=== PATIENT | male | born 1975 | race Caucasian/White ===

== ENCOUNTER 2018-08-07 19:34 | Inpatient (IN) | payer MEDICAID, OTHER ==
[2018-08-07 21:15] LABS: ADD MAN DIFF? NO
[2018-08-07 21:18] LABS: BASOPHIL # 0.1 10^3/ul (0.0-0.1); BASOPHILS % 0.5 % (0.0-2.0); EOSINOPHILS % 0.1 % (0.0-7.0); HEMOGLOBIN 17.2 g/dl (14.0-18.0); LYMPHOCYTES # 1.2 10^3/ul (0.8-2.9); LYMPHOCYTES % 7.3 % (15.0-51.0); MEAN CORPUSCULAR HEMOGLOBIN 29.4 pg (29.0-33.0); MEAN CORPUSCULAR HGB CONC 33.7 g/dl (32.0-37.0); MEAN PLATELET VOLUME 11.3 fl (7.4-10.4); MONOCYTE # 0.5 10^3/ul (0.3-0.9); MONOCYTES % 3.2 % (0.0-11.0); NEUTROPHILS % 88.5 % (39.0-77.0); PLATELET COUNT 252 10^3/UL (140-415); RED BLOOD COUNT 5.86 10^6/ul (4.70-6.10); RED CELL DISTRIBUTION WIDTH 12.5 % (11.5-14.5)
[2018-08-07 21:18] LABS: WHITE BLOOD COUNT 15.9 10^3/ul (4.8-10.8)
[2018-08-07] MEDS: SOD CHLORIDE 0.9% 500 ML IV (21:23)
[2018-08-07] MEDS: BELLADONNA/PHENOBARBITAL TAB PO (21:23)
[2018-08-07] MEDS: ASPIRIN 81 MG TAB PO (21:23)
[2018-08-07] MEDS: FAMOTIDINE 20 MG TAB PO (21:23)
[2018-08-07 21:24] LABS: ALANINE AMINOTRANSFERASE 57 IU/L (13-69); ALBUMIN 4.5 g/dl (3.3-4.9); ALBUMIN/GLOBULIN RATIO 1.28; ALKALINE PHOSPHATASE 61 IU/L (42-121); ANION GAP 11 (5-13); ASPARTATE AMINO TRANSFERASE 121 IU/L (15-46); BILIRUBIN,INDIRECT 0.5 mg/dl (0-1.1); BILIRUBIN,TOTAL 0.5 mg/dl (0.2-1.3); BLOOD UREA NITROGEN 19 mg/dl (7-20); CALCIUM 9.5 mg/dl (8.4-10.2); CARBON DIOXIDE 26 mmol/L (21-31); CHLORIDE 103 mmol/L (97-110); CREATININE 0.95 mg/dl (0.61-1.24); Estimated GFR > 60 mL/min (>60); GLUCOSE 151 mg/dl (70-220); LIPASE 86 U/L (23-300); SODIUM 140 mmol/L (135-144)
[2018-08-07] MEDS: LIDOCAINE/MYLANTA 40 ML BTL PO (21:24)
[2018-08-07 21:25] LABS: POTASSIUM 3.6 mmol/L (3.5-5.1)
[2018-08-07] MEDS: HYDROCHLOROTHIAZIDE 25 MG TAB PO (21:26)
[2018-08-08] MEDS: hydrALAzine 20 MG INJ IV ×2 (00:38→08:36)
[2018-08-08] MEDS ORDERED: ALBUTEROL/IPRATROPIUM (NEB) 3 ML AMP HHN (02:30)
[2018-08-08] MEDS ORDERED: NITROGLYCERIN (SL) 0.4 MG TAB SL (02:30)
[2018-08-08] MEDS ORDERED: NACL 0.9% 3 ML SYG IV (02:30)
[2018-08-08] MEDS ORDERED: ENOXAPARIN 100 MG/ML SYG SC (02:30)
[2018-08-08 02:32] LABS: ADD MAN DIFF? NO
[2018-08-08 02:33] LABS: BASOPHIL # 0.1 10^3/ul (0.0-0.1); BASOPHILS % 0.4 % (0.0-2.0); EOSINOPHILS % 0.2 % (0.0-7.0); HEMATOCRIT 50.2 % (42.0-52.0); LYMPHOCYTES # 2.7 10^3/ul (0.8-2.9); LYMPHOCYTES % 17.6 % (15.0-51.0); MEAN CORPUSCULAR HEMOGLOBIN 29.4 pg (29.0-33.0); MEAN CORPUSCULAR HGB CONC 33.9 g/dl (32.0-37.0); MEAN CORPUSCULAR VOLUME 86.9 fl (82.0-101.0); MEAN PLATELET VOLUME 10.5 fl (7.4-10.4); MONOCYTE # 0.9 10^3/ul (0.3-0.9); MONOCYTES % 6.1 % (0.0-11.0); NEUTROPHIL # 11.6 10^3/ul (1.6-7.5); NEUTROPHILS % 75.2 % (39.0-77.0); PLATELET COUNT 268 10^3/UL (140-415); RED BLOOD COUNT 5.78 10^6/ul (4.70-6.10); RED CELL DISTRIBUTION WIDTH 12.6 % (11.5-14.5)
[2018-08-08 02:33] LABS: WHITE BLOOD COUNT 15.5 10^3/ul (4.8-10.8)
[2018-08-08 02:52] LABS: ALANINE AMINOTRANSFERASE 64 IU/L (13-69); ALBUMIN 4.3 g/dl (3.3-4.9); ALBUMIN/GLOBULIN RATIO 1.26; ALKALINE PHOSPHATASE 56 IU/L (42-121); ANION GAP 10 (5-13); ASPARTATE AMINO TRANSFERASE 385 IU/L (15-46); BILIRUBIN,INDIRECT 0.8 mg/dl (0-1.1); BILIRUBIN,TOTAL 0.8 mg/dl (0.2-1.3); BLOOD UREA NITROGEN 16 mg/dl (7-20); CALCIUM 9.1 mg/dl (8.4-10.2); CARBON DIOXIDE 29 mmol/L (21-31); CHLORIDE 103 mmol/L (97-110); CHOLESTEROL 228 mg/dl (100-200); CREATININE 0.89 mg/dl (0.61-1.24); Estimated GFR > 60 mL/min (>60); GLUCOSE 129 mg/dl (70-220); HDL CHOLESTEROL 45 mg/dl (27-67); LDL CHOLESTEROL,CALCULATED 157 mg/dl; MAGNESIUM 1.9 mg/dl (1.7-2.5); POTASSIUM 4.1 mmol/L (3.5-5.1); SODIUM 142 mmol/L (135-144); TOTAL PROTEIN 7.7 g/dl (6.1-8.1); TRIGLYCERIDES 128 mg/dl (0-149)
[2018-08-08 03:00] LABS: HEMOGLOBIN A1C 5.4 % (0-5.9)
[2018-08-08 03:12] LABS: CK INDEX 6.6; CREATINE KINASE 2854 IU/L (23-200)
[2018-08-08] MEDS: ATORVASTATIN 80 MG TAB PO (03:19)
[2018-08-08] MEDS: DEXTROSE 5%-0.45% NACL 1,000 ML IV ×2 (03:19→12:03)
[2018-08-08] MEDS: ENOXAPARIN 100 MG/ML SYG SC (03:33)
[2018-08-08] MEDS: ACETAMINOPHEN 325 MG TAB PO (03:34)
[2018-08-08] MEDS: ASPIRIN (EC) 81 MG TAB PO (08:35)
[2018-08-08] MEDS: FAMOTIDINE 20 MG INJ IV (08:36)
[2018-08-08 08:46] LABS: CREATINE KINASE 2553 IU/L (23-200)
[2018-08-08 08:47] LABS: CK INDEX 6.3
[2018-08-08] MEDS ORDERED: hydrALAzine 20 MG INJ IV (10:30)
[2018-08-08] MEDS: ONDANSETRON 4 MG INJ IV (10:59)
[2018-08-08] MEDS ORDERED: ATORVASTATIN 40 MG TAB PO (21:00)
[2018-08-09] MEDS ORDERED: LISINOPRIL 5 MG TAB PO (09:00)
== END 2018-08-08 13:40 | disposition short-term general hospital (02) | DRG 281 ==
LOC: E/R 19:34 → TEL 22:14
DX: I21.4 Non-ST elevation (NSTEMI) myocardial infarction (principal); I16.1 Hypertensive emergency; I95.9 Hypotension, unspecified; Z79.82 Long term (current) use of aspirin
CPT/HCPCS: 36415; 71045; 80053; 80061; 82550; 82553; 83036; 83690; 83735; 84443; 84484; 85025; 87081; 93005; 93306; 99285-25